=== PATIENT | female | born 1995 ===

== ENCOUNTER 2017-04-18 13:02 | Emergency (ER) | payer BC ==
[2017-04-18] MEDS ORDERED: NS 0.9% 1000 ML* 2,000 ML IV ONE (16:13)
[2017-04-18] MEDS ORDERED: Metoclopramide IV* 5 MG/ML 2 ML VIAL IV ONE (16:13)
[2017-04-18 16:14] LABS: Hematocrit 44 % (35-47); Hemoglobin 14.5 g/dl (12.0-16.0); Mean Corpuscular HGB Conc 33 g/dl (31-36); Mean Corpuscular Hemoglobin 29 pg (27-31); Mean Corpuscular Volume 88 fL (80-97); Mean Platelet Volume 9 um3 (7.4-10.4); Red Blood Count 4.98 10^6/ul (4.0-5.4); Red Cell Distribution Width 13 % (10.5-15); White Blood Count 13.6 10^3/ul (3.5-10.8)
[2017-04-18 16:23] LABS: ALT 13 U/L (7-52); AST 19 U/L (13-39); Albumin 4.9 g/dL (3.2-5.2); Alkaline Phosphatase 49 U/L (34-104); Anion Gap 17 mmol/L (2-11); BUN/Creatinine Ratio 16.7 (8-20); Blood Urea Nitrogen 16 mg/dL (6-24); C Reactive Protein 1.62 mg/L (< 5.00); CO2 Carbon Dioxide 17 mmol/L (22-32); Calcium 9.8 mg/dL (8.6-10.3); Chloride 100 mmol/L (101-111); EGFR African American 96.3 (>60); EGFR Non-African American 74.9 (>60); Globulin 2.8 g/dL (2-4); Glucose 66 mg/dL (70-100); Lipase 14 U/L (11.0-82.0); Potassium 3.9 mmol/L (3.5-5.0); Sodium 134 mmol/L (133-145); Total Protein 7.7 g/dL (6.4-8.9)
[2017-04-18 18:32] LABS: Urine Bacteria 1+ (Absent); Urine Bilirubin Negative (Negative); Urine Glucose Negative (Negative); Urine Nitrite Negative (Negative)
--- NOTE | 2017-04-18 18:48 | ED ---
Tate Hutson Angela, scribed for Mayra Lobo MD on 04/18/17 at 1612 . Complex/Multi-Sys Presentation - HPI Summary HPI Summary: This pt is a 21 y/o female presenting to [facility] c/o vomiting since yesterday. Pt reports she had 1 episode of diarrhea yesterday and she has abd pain only when vomiting. Today, pt notes she had 3 episodes of emesis. She states she has not been able to keep anything down. Pt denies any urinary symptoms, dysuria, hematuria, fever. She denies any PMHx. - History Of Current Complaint Chief Complaint: EDNauseaVomitDiarrh Time Seen by Provider: 04/18/17 15:54 Hx Obtained From: Patient Onset/Duration: Lasting Hours, Still Present Timing: Hours Severity Currently: Moderate Severity Initially: Moderate Location: Pain At: - abd Associated Signs And Symptoms: Positive: Nausea, Vomiting, Diarrhea. Negative: Fever - Allergies/Home Medications Allergies/Adverse Reactions: Allergies Allergy/AdvReac Type Severity Reaction Status Date / Time Penicillins Allergy Hives Verified 04/18/17 13:16 PMH/Surg Hx/FS Hx/Imm Hx Endocrine/Hematology History: Denies: Hx Diabetes Cardiovascular History: Denies: Hx Hypertension Infectious Disease History: No Infectious Disease History: Denies: Traveled Outside the [place] in Last 30 Days - Family History Known Family History: Negative: Cardiac Disease, Hypertension, Diabetes - Social History Alcohol Use: None Substance Use Type: Reports: None Smoking Status (MU): Never Smoked Tobacco Review of Systems Negative: Fever, Chills Positive: Abdominal Pain, Vomiting, Diarrhea, Nausea Negative: dysuria, hematuria All Other Systems Reviewed And Are Negative: Yes Physical Exam Triage Information Reviewed: Yes Vital Signs On Initial Exam: Initial Vitals Temp Pulse Resp BP Pulse Ox 98.8 F 96 16 109/74 99 04/18/17 13:13 04/18/17 13:13 04/18/17 13:13 04/18/17 13:13 04/18/17 13:13 Vital Signs Reviewed: Yes Appearance: Positive: Well-Appearing, Well-Nourished Skin: Positive: Warm, Skin Color Reflects Adequate Perfusion, Dry Head/Face: Positive: Normal Head/Face Inspection Eyes: Positive: Normal ENT: Positive: Normal ENT inspection, Hearing grossly normal Respiratory/Lung Sounds: Positive: Clear to Auscultation, Breath Sounds Present Cardiovascular: Positive: Normal, RRR Abdomen Description: Positive: Nontender, Soft. Negative: CVA Tenderness (R), CVA Tenderness (L) Musculoskeletal: Positive: Normal, Strength/ROM Intact Neurological: Positive: Normal, Sensory/Motor Intact, Alert, Oriented to Person Place, Time Psychiatric: Positive: Normal Diagnostics - Vital Signs Vital Signs Temp Pulse Resp BP Pulse Ox 04/18/17 15:40 98.2 F 73 24 100/64 100 04/18/17 13:13 98.8 F 96 16 109/74 99 - Laboratory Result Diagrams: 04/18/17 15:59 04/18/17 15:59 Lab Statement: Any lab studies that have been ordered have been reviewed, and results considered in the medical decision making process. Re-Evaluation - Re-Evaluation First Eval Re-Evaluation Time: 18:40 Comment: Pt is feeling better. Complex Multi-Symp Course/Dx Assessment/Plan: Pt is a 21 y/o female who presents with vomiting since yesterday, associated with 1 episode of diarrhea. Blood work was obtained. Urine shows 2+ protein, 2+ ketones, 1+ RBC, present squamous epithelial cells, 1 + bacteria, present hyaline casts. In the ED course, the pt was given reglan and IV fluids. On re-evaluation, pt is feeling better. Pt will be discharged home with a prescription for Reglan. - Diagnoses Provider Diagnoses: Vomiting, Gastritis Discharge - Discharge Plan Condition: Stable Disposition: HOME Prescriptions: Metoclopramide TAB* [Reglan TAB*] 10 mg PO Q6H PRN #20 tab PRN Reason: Nausea Patient Education Materials: Gastritis (ED), Acute Nausea and Vomiting (ED) Referrals: [facility] [place] - Aristides [facility] [Primary Care Provider] - The documentation as recorded by the Tate hastings Angela accurately reflects the service I personally performed and the decisions made by , Mayra Lobo MD.
== END 2017-04-18 19:51 | disposition home or self-care (01) ==
LOC: ED 13:02
DX: R11.2 Nausea with vomiting, unspecified (principal); R19.7 Diarrhea, unspecified; K29.70 Gastritis, unspecified, without bleeding
CPT/HCPCS: 36415; 80053; 81003; 81015; 83605; 83690; 84702; 85025; 86140; 87086; 96361; 96374; 99283; J2765